=== PATIENT | male | born 1955 | race Caucasian/White ===

== ENCOUNTER 2017-02-19 12:42 | Outpatient (CLI) | payer MEDICARE ==
[2017-02-19 18:17] LABS: PSA TOTAL 0.836 ng/mL (0.000-2.000)
== END 2017-02-19 12:43 | disposition home or self-care (01) ==
LOC: LAB.F 12:42
PROVIDERS: ATTEND Urology
DX: C61 Malignant neoplasm of prostate (principal)
CPT/HCPCS: 36415; 84153; 84403

== ENCOUNTER 2019-07-28 20:21 | Outpatient (CLI) | payer MEDICARE | END 2019-07-28 23:59 | disposition short-term general hospital (02) | LOC: EMS 20:21 | PROVIDERS: ATTEND Surgery | DX: R42 Dizziness and giddiness (principal); R07.89 Other chest pain; M79.602 Pain in left arm; R61 Generalized hyperhidrosis | CPT/HCPCS: A0425; A0427 ==

== ENCOUNTER 2019-10-08 14:20 | Outpatient (CLI) | payer MEDICARE ==
--- NOTE | 2019-10-08 15:40 | XRAY Report ---
Reason: LOW BACK PAIN Procedure Date: 10/08/2019 Accession Number: [id number] / [id number] Procedure: XR - Lumbar Spine 2 View CPT Code: Final Report FULL RESULT: EXAM: LUMBOSACRAL SPINE RADIOGRAPHY EXAM DATE: 10/08/2019 02:24 PM. CLINICAL HISTORY: LOW BACK PAIN. COMPARISONS: None. TECHNIQUE: 3 views. FINDINGS: Alignment: Mild to moderate dextroconvex scoliosis at the thoracolumbar spine. Bones: Five tqr-zbd-[id number] lumbar vertebral bodies are present. Anterior and lateral osteophytes at the thoracolumbar spine. No acute fracture or bone lesions. Disks: Multilevel disk space narrowing. Facets: Facet arthropathy at the lower lumbar spine. Sacroiliac Joints: Unremarkable. Soft Tissues: There are a few calcifications projected over the left kidney suspicious for nephrolithiasis. 1 of the larger calcifications measures approximately 1.4 x 1 cm. IMPRESSION: 1. Mild to moderate dextroconvex scoliosis at the thoracolumbar spine. 2. Multilevel disk space narrowing and facet arthropathy. 3. Findings suspicious for left nephrolithiasis. RADIA
--- NOTE | 2019-10-09 05:33 | XRAY Report ---
Reason: PAIN IN RIGHT SHOULDER Procedure Date: 10/08/2019 Accession Number: [id number] / [id number] Procedure: XR - Shoulder 2 View RT CPT Code: Final Report FULL RESULT: EXAM: RIGHT SHOULDER RADIOGRAPHY EXAM DATE: 10/08/2019 02:24 PM. CLINICAL HISTORY: PAIN IN RIGHT SHOULDER. COMPARISON: None. TECHNIQUE: 2 views. FINDINGS: Bones: Normal. No fracture or bone lesion. Joints: Mild degenerative changes consisting of osteophytes are seen in the acromioclavicular and glenohumeral joints. There is no evidence of dislocation or subluxation. Soft tissues: The visualized hemithorax is unremarkable. No soft tissue swelling. IMPRESSION: No acute fracture or dislocation. RADIA
== END 2019-10-08 14:21 | disposition home or self-care (01) ==
LOC: DI 14:20
PROVIDERS: ATTEND Anesthesiology
DX: M19.011 Primary osteoarthritis, right shoulder (principal); M51.36 Other intervertebral disc degeneration, lumbar region; M47.816 Spondylosis without myelopathy or radiculopathy, lumbar region; M41.9 Scoliosis, unspecified
CPT/HCPCS: 72100

== ENCOUNTER 2021-08-15 06:15 | Day surgery (SDC) | payer MEDICARE ==
[2021-08-15] MEDS ORDERED: LACTATED RINGERS 1,000 ML IV ONE (06:51)
--- NOTE | 2021-08-15 07:24 | ANESTHESIA ---
Pre-Anesthesia VS, & Labs - Diagnosis screening - Procedure colonoscopy Vital Signs: Temp Pulse Resp BP Pulse Ox 36.5 C 54 L 17 104/85 H 98 08/15/21 06:51 08/15/21 06:51 08/15/21 06:51 08/15/21 06:51 08/15/21 06:51 Height: 6 ft Weight (kg): 87.4 kg Body Mass Index: 26.1 BMI Classification: Overweight - NPO >8 hours Home Medications and Allergies Home Medications: Ambulatory Orders Aspirin [[place] Aspirin] 81 mg PO DAILY 08/14/21 Atorvastatin Calcium [Lipitor] 80 mg PO DAILY 08/14/21 Fluoxetine HCl [Prozac] 20 mg PO DAILY 08/14/21 Metoprolol Succinate [Kapspargo Sprinkle] 25 mg PO DAILY 08/14/21 Multivitamin [Multivitamins] 1 each PO DAILY 05/12/14 Warren-3 Fatty Acids [Fish Oil] 500 mg PO DAILY 05/12/14 Testosterone Cypionate 200 mg IM ONCE 05/12/14 Aspirin [[place] Aspirin] 81 mg PO DAILY 08/14/21 Atorvastatin Calcium [Lipitor] 80 mg PO DAILY 08/14/21 Fluoxetine HCl [Prozac] 20 mg PO DAILY 08/14/21 Metoprolol Succinate [Kapspargo Sprinkle] 25 mg PO DAILY 08/14/21 Allergies/Adverse Reactions: Allergies Allergy/AdvReac Type Severity Reaction Status Date / Time No Known Drug Allergies Allergy Verified 05/12/14 09:13 Anes History & Medical History - Anesthetic History Anesthesia Complications: reports: No previous complications Family history of Anesthesia Complications: Denies Family history of Malignant Hyperthermia: Denies - Medical History Cardiovascular: reports: Peripheral Vascular Disease, [place], Other (stents placed 2 yrs ago, bare metal) Pulmonary: reports: None Gastrointestinal: reports: Hemorrhoids Urinary: reports: Benign prostate hypertrophy, Frequency, Kidney stones Musculoskeletal: reports: Osteoarthritis, Other Endocrine/Autoimmune: reports: None Skin: reports: None Psychosocial: reports: Substance abuse, Other (marijuana use 4-5 days/week) - Surgical History Eyes Ears Nose Throat (EENT): reports: Tonsil/Adenoidectomy Orthopedic: reports: Other Exam General: Alert, Oriented x3, Cooperative Dental: WNL Mouth Openin Fingerbreadth Neck Mobility: Normal Mallampati classification: II Thyromental Distance: 4-6 cm Respiratory: Lungs clear Cardiovascular: Regular rate Abdomen: Normal bowel sounds Extremities: No clubbing Neurological: Normal gait Mental/Cognitive Status: Alert/Oriented X3 Cognitive Status: Within normal limits Plan Anesthesia Type: General Consent for Procedure(s) Verified and Reviewed: Yes Code Status: Attempt Resuscitation ASA classification: 2-Mild systemic disease Is this case an emergency?: No
[2021-08-15] MEDS ORDERED: fentaNYL 100 MCG/2 ML VIAL ONE (07:38)
[2021-08-15] MEDS ORDERED: PROPOFOL 500 MG/50 ML 500 MG/50 ML VIAL ONE (08:15)
[2021-08-15 09:02] VITALS: BP 140/71
[2021-08-15] MEDS ORDERED: LACTATED RINGERS 500 ML IV ONE (09:13)
--- NOTE | 2021-08-15 10:20 | ANESTHESIA POST OP EVALUATION ---
Anesthesia Post Eval - Post Anesthesia Eval Vitals: Last Vital Signs Temp 36.2 C L 08/15/21 08:45 Pulse 74 08/15/21 08:45 Resp 16 08/15/21 08:45 BP 140/71 H 08/15/21 08:45 Pulse Ox 100 08/15/21 08:45 CV Function Including HR & BP: Stable Pain Control: Satisfactory Nausea & Vomiting: Negative Mental Status: Baseline Respiratory Status: Airway Patent Hydration Status: Satisfactory Anesthesia Complications: None
== END 2021-08-15 06:16 | disposition home or self-care (01) ==
LOC: SDS 06:15
PROVIDERS: ATTEND Surgery
PROC: 0DBP8ZX Excision of Rectum, Via Natural or Artificial Opening Endoscopic, Diagnostic (ICD-10-PCS; 2021-08-15)
PROC: 0DBM8ZX Excision of Descending Colon, Via Natural or Artificial Opening Endoscopic, Diagnostic (ICD-10-PCS; principal; 2021-08-15 07:30)
DX: Z12.11 Encounter for screening for malignant neoplasm of colon (principal); D12.4 Benign neoplasm of descending colon; K62.1 Rectal polyp; K64.8 Other hemorrhoids; K57.30 Diverticulosis of large intestine without perforation or abscess without bleeding
CPT/HCPCS: 45380; J7120

== ENCOUNTER 2024-02-14 08:33 | Outpatient (CLI) | payer MEDICARE ==
--- NOTE | 2024-02-16 11:27 | MRI Report ---
PROCEDURE: Shoulder RT WO INDICATIONS: R ARM PAIN TECHNIQUE: Noncontrast oblique coronal T2 fast spin echo with fat saturation, oblique sagittal T1 spin echo and T2 fast spin echo with fat saturation, axial T1 spin echo and T2 fast spin echo with fat saturation t hrough the shoulder. COMPARISON: Left shoulder radiograph dated 10/08/2019. FINDINGS: Image quality: Excellent. Rotator cuff: There is full-thickness rupture of distal supraspinatus approximately 2 cm from its ins ertion on humeral head with up to 1.7 cm medial retraction of torn tendon fibers to the level of acro mium. Distal infraspinatus tendinosis and low-grade articular surface partial-thickness tear at its i nsertion on humeral head is seen. Low-grade intrasubstance partial thickness tear involving distal caraballo bscapularis is also noted. Moderate supraspinatus muscle atrophy is seen on sagittal images. Bones and bursae: No bone marrow contusions or fractures. Lapd-xc-chgbvvab acromioclavicular joint o steoarthritic changes are seen with joint space narrowing and downward osteophyte formation depressin g on musculotendinous junction of supraspinatus. Type II acromion, without an os acromiale. Moderate to large joint effusion and subacromial subdeltoid bursal fluid is seen, no definite loose bodies. Capsule and soft tissues: Extensive signal abnormality and fraying of superior anterior labrum is see n suggestive of extensive superior anterior labral tear. The long head of the biceps tendon demonstra gibran appears thickened with intrasubstance T2 hyperintense signal intra-articularly. The rotator inter nikia appears normal, without fibrosis. The coracohumeral ligament is normal in thickness. IMPRESSION: 1. Full-thickness rupture involving supraspinatus approximately 2 cm from its insertion on humeral he ad and up to 1.7 cm medial retraction of torn tendon fibers to the level of acromion. Moderate supras pinatus muscle atrophy. 2. Low-grade articular surface partial-thickness tear involving distal infraspinatus at its insertion on humeral head. Low-grade intrasubstance partial thickness tear involving distal subscapularis. 3. Rsoj-zf-uapnsrze acromioclavicular joint osteoarthritis. No fracture or dislocation. Moderate to l arge joint effusion and subacromial subdeltoid bursal fluid, no gross loose bodies. 4. Suggestion of extensive superior anterior labral tear. 5. Low to moderate grade intrasubstance partial thickness tear involving proximal long head of biceps . Reviewed by: Jesse Montero MD on 02/16/2024 11:26 AM PDT Approved by: Jesse Montero MD on 02/16/2024 11:26 AM PDT Station ID: [id number]
== END 2024-02-14 08:34 | disposition home or self-care (01) ==
LOC: DI 08:33
PROVIDERS: ATTEND Registered Nurse
DX: S46.111A Strain of muscle, fascia and tendon of long head of biceps, right arm, initial encounter (principal); M75.121 Complete rotator cuff tear or rupture of right shoulder, not specified as traumatic; M62.521 Muscle wasting and atrophy, not elsewhere classified, right upper arm; M19.011 Primary osteoarthritis, right shoulder; M25.411 Effusion, right shoulder

== ENCOUNTER 2024-05-05 08:58 | Outpatient (CLI) | payer MEDICARE ==
--- NOTE | 2024-05-05 10:01 | Sleep Patient Instructions ---
Sleep Center Visit Summary - Patient Visit Information Reason for Visit: Initial consult for evaluation of sleep disordered breathing and other sleep issues. - Patient Instructions Instructions Attached: Sleep Study Additional Instructions: You will be completing a sleep study, either an in-lab polysomnography (PSG) or home sleep study (HST). You will follow-up in the sleep care office after the sleep study is completed to hear the results and talk about therapy, if needed. You will be called by our office staff to schedule this appointment, but you may contact us with any questions. - Clinic Information Contact: [facility] [address] [place] [address] [email or web address] T: [phone]
--- NOTE | 2024-05-05 10:04 | SLEEP CARE CONSULTATION ---
Information from patient questionnaire entered by Renata Rincon. I have reviewed and concur with the information entered by Renata Rincon. This document represents the service I personally performed and the decisions made by me, Beatrice Burden ARNP. History of Present Illness Service Date and Time: 05/05/2024 0858 Reason for Visit: New patient Chief Complaint: reports: Unrefreshed sleep, Snoring, Observed pauses in breathing, Frequent awakenings at night Date of Onset: YRS Usual bedtime: 2300 Time it takes to fall asleep: 5MINS Snores at night: Yes Observed to quit breathing while asleep: Yes Number of times waking at night: 5+ Reasons for waking at night: reports: Choking (if on back), Snoring, Gasping for air (maybe), Pain, Bathroom, Other ("shock" awakening, usually when falls asleep on his back) Toss, Turn, or Twitch while sleeping: Yes Recalls having dreams: Yes Usually gets out of bed at: AFTERNOON NEVER Feels refreshed in the morning: No Morning headache: Yes (most mornings, "sinus feeling" on forehead) Sleepy or fatigued during the day: Yes Ever fallen asleep while driving: No Takes day naps: Yes (couple times a week for about 1 hour, sometimes more) Prior sleep studies: No Additional HPI information: I had the pleasure of seeing MAGGI SORIANO today regarding the possibility of him having a sleep disorder. His current complaints are frequent night awakenings, observed pauses in breathing, snoring and unrefreshed sleep. He says he was told that he should tell his primary care provider that he has sleep apnea the last time he was in the hospital. He is having more trouble sleeping and waking up with "stuffy, blocked, dull feeling" in his head. He is waking up feeling exhausted. He has a genetic neuromuscular disease, CMT disease. He was told he has muscular dystrophy as a kid. He always had muscle aches and pains. He says he cannot sleep on his back because he will "choke himself". He will mostly sleep on his sides and will wake up 5-15 times a night. Some of it is physical discomfort but mostly for unknown reasons. - Parasomnia Symptoms Ever been unable to move upon waking from sleep: No Walks in sleep: No Talks in sleep: No Ever acted out dreams in sleep: No Ever felt weak in the knees when startled or emotional: No Bothered by creepy, crawly, restless sensations in legs: Yes Problems with memory or concentration: Yes Subjective Initial [place] Sleepiness Scale score: 9 (05/05/24) Past Medical History Past Medical History: reports: Claustrophobia, Coronary Heart Disease, Depression, GERD, Attention deficit, Other (CHARCOT TANJA TOOTH DISEASE) Social History The patient's occupation is a RE. Patient is Single and lives in [place]. Have you smoked in the past 12 months: No Cigarettes per day (20/pack): 5 Years of smokin Quit date: 1979 Smoking Pack Years: 1.4 Alcohol use: Yes Alcohol amount and frequency: 1-2 DRINKS RARELY 1XA MONTH Caffeine use: Yes Caffeine amount and frequency: DAILY 1-2 CUPS DAILY Family History Family history of sleep disordered breathing: No Allergies and Home Medications Known drug allergies: No Drug allergies reviewed: Yes Home medication list reviewed: Yes (as listed) Allergy and home medication list: Allergies No Known Drug Allergies Allergy (Verified 05/05/24 09:10) Home Medications Medication Instructions Recorded Confirmed Last Taken Type Aspirin [[place] Aspirin] 81 mg PO DAILY 08/14/21 05/05/24 Unknown History Fluoxetine HCl [Prozac] 20 mg PO DAILY 08/14/21 05/05/24 Unknown History Metoprolol Succinate [Kapspargo 25 mg PO DAILY 08/14/21 05/05/24 Unknown History Sprinkle] Cholecalciferol (Vitamin D3) See Rx Instructions .ROUTE .COMPLEX 05/05/24 05/05/24 Unknown History [Vitamin D3] Pravastatin See Rx Instructions .ROUTE .COMPLEX 05/05/24 05/05/24 Unknown History Review of Systems Weight gain over past 5 years: 10 Cardiovascular: reports: high blood pressure, other (HYPER LIPDEMIEA) Gastrointestinal: reports: heartburn, other (IRREGULAR HEART RATE) Urinary: reports: frequency, other (PROSTATE) Neurological: reports: headaches, gait or balance problems, other (NEURO MUSCULAR DISEASE) Psychiatric: reports: depression, claustrophobia Ear/Nose/Throat: reports: nasal congestion, sinus problems, dry mouth/throat, tonsillectomy, wisdom teeth removed, other (HEARING AIDS) Endocrine: reports: sluggishness Musculoskeletal: reports: joint pain, neck pain, back pain, joint swelling, muscle pain or cramping, mobility problems, other (CMT) Physical Exam Vital signs obtained and entered by: RENATA Ferris MA Blood Pressure: 152/85 (RIGHT ARM) Cuff size: regular Heart Rate: 50 O2 Saturation: 95 Height: 5 ft 10.25 in Weight: 210 lb 12.8 oz Body Mass Index: 30.0 BMI Classification: Obese Neck circumference: 17.5 Mouth and throat: narrow oropharynx Soft palate: long Hard palate: normal Uvula: normal Uvula visualization: 25% Mallampati Class III Tongue: enlarged in size with teeth hernandez on lateral edges Tonsils: absent bilaterally Neck: normal w/o lymphadenopathy or thyromegaly Heart: regular rate and rhythm Lungs: clear bilaterally Impression and Plan 1. Suspected Obstructive Sleep Apnea-Hypopnea Syndrome, as suggested by a history of loud and irregular snoring, observed cessation of breath while asleep, gasping or choking in sleep, morning headache, frequent awakening during the night, unrefreshed sleep and cognitive impairment. Narrow oropharynx and obesity are common predisposing factors for obstructive sleep apnea-hypopnea syndrome. I recommend proceeding to polysomnography to confirm the diagnosis and to assess severity. If the patient has significant sleep disordered breathing, a manual CPAP titration study will also be performed to find the optimal treatment pressure. I informed the patient of what the sleep studies involve and after some discussion, obtained agreement to proceed. The pathophysiology of obstructive sleep apnea-hypopnea syndrome was discussed with the patient and health risks of cardiovascular and cerebrovascular disease if not treated. Risks of drowsy driving discussed in detail and patient advised to avoid long distance driving and to chain puller at the first sign of drowsiness. Patient agreed to plan. * Schedule polysomnography +- manual CPAP titration study and return in 1-2 weeks after the study to discuss result and initiate therapy. * Avoid long distance driving or driving when feeling sleepy. * Avoid alcohol, sedative and muscle relaxant around bedtime. * Attempt to lose weight. * Review instructions provided by trained office staff on how to prepare for the sleep study. * Return for follow-up after sleep study completed. Counseling Topics: Weight loss health impact Plan: sleep study and followup Visit Type: In Office Time Spent with Patient (minutes): 30 Provider Statement: I spent 100% of the Face to Face Visit with the patient with greater than 50% spent counseling the patient and coordination of care.
[2024-05-05 10:09] VITALS: BP 152/85; O2SAT 95
== END 2024-05-05 08:59 | disposition home or self-care (01) ==
LOC: SC 08:58
PROVIDERS: ATTEND Nurse Practitioner Family
DX: G47.8 Other sleep disorders (principal); R06.81 Apnea, not elsewhere classified; R06.83 Snoring; Z87.891 Personal history of nicotine dependence; R51.9 Headache, unspecified; R41.89 Other symptoms and signs involving cognitive functions and awareness; E66.9 Obesity, unspecified; Z68.30 Body mass index [BMI] 30.0-30.9, adult
CPT/HCPCS: 99203; G0463; 99212